=== PATIENT | female | born 1980 | race Native Hawaiian/Other Pacific Islander ===

== ENCOUNTER 2020-02-23 13:47 | Emergency (ER) | payer OTHER ==
[~2020-02-23] VITALS: Ht 170.2 cm; Wt 60.6 kg
[2020-02-23 15:02] LABS: PLATELET COUNT 274 K/uL (152-353)
[2020-02-23 15:05] LABS: POTASSIUM 3.7 mmol/L (3.6-5.2)
[2020-02-23 15:34] VITALS: BP 105/62; TEMP 97.3
== END 2020-02-23 16:13 | disposition home or self-care (01) ==
LOC: ED 13:47
PROVIDERS: Family Medicine
DX: A08.39 Other viral enteritis (principal)
CPT/HCPCS: 36415; 80053; 85027; 96360; 99284

== ENCOUNTER 2020-03-27 14:38 | Outpatient (CLI) | payer OTHER | END 2020-03-27 21:17 | disposition home or self-care (01) | LOC: MRI 14:38 | PROVIDERS: ATTEND Internal Medicine | DX: M54.2 Cervicalgia (principal); R20.2 Paresthesia of skin ==